=== PATIENT | female | born 1995 | race African-American/Black ===

== ENCOUNTER 2020-04-03 10:27 | Emergency (ER) | payer OTHER ==
[~2020-04-03] VITALS: Ht 160 cm; Wt 136.1 kg
[2020-04-03] MEDS ORDERED: FLAGYL500 M1 PO (10:39)
[2020-04-03 12:14] LABS: URINE BILIRUBIN NEGATIVE (Negative); URINE BLOOD TRACE (Negative); URINE CLARITY CLEAR; URINE COLOR YELLOW; URINE GLUCOSE-RANDOM* NEGATIVE (Negative); URINE KETONES NEGATIVE (Negative); URINE LEUKOCYTES-REFLEX NEGATIVE (Negative); URINE NITRITE-REFLEX NEGATIVE (Negative); URINE PROTEIN (DIPSTICK) NEGATIVE (Negative); URINE UROBILINOGEN 0.2 E.U./dl (0.2-1.0)
[2020-04-03 12:23] LABS: ABSOLUTE NEUTROPHILS 2.9 thou/uL (1.4-8.2); BASOPHILS 0.4 % (0.0-2.0); EOSINOPHILS 4.4 % (0.0-3.0); HEMATOCRIT 39.4 % (37.0-47.0); HEMOGLOBIN 13.7 gm/dL (12.0-15.0); LYMPHOCYTES 31.2 % (24.0-44.0); MCH 28.8 pg (26.0-34.0); MCHC 34.8 g/dL (28.0-37.0); MCV 82.9 fL (80.0-100.0); MONOCYTES 6.4 % (1.0-8.0); PLATELET COUNT 214 thou/uL (150-400); POLYS 57.6 % (36.0-66.0); RBC 4.75 mil/uL (4.20-5.00); RDW 13.9 % (10.5-14.5)
[2020-04-03 12:27] LABS: CALCIUM 9.4 mg/dL (8.5-10.1); POTASSIUM 4.1 mmol/L (3.5-5.1)
[2020-04-03 12:34] LABS: ALBUMIN 3.9 g/dL (3.4-5.0); TOTAL BILIRUBIN 0.5 mg/dL (0.2-1.0); TOTAL PROTEIN 8.4 g/dL (6.4-8.2)
[2020-04-03] MEDS ORDERED: ZOFRAN ODT4 MG DISSOLVE (14:26)
[2020-04-03 14:28] VITALS: BP 111/52
== END 2020-04-03 14:28 | disposition home or self-care (01) ==
LOC: ER 10:27
PROVIDERS: Physician Assistant
DX: R10.13 Epigastric pain (principal); R11.2 Nausea with vomiting, unspecified; F17.210 Nicotine dependence, cigarettes, uncomplicated; Z87.19 Personal history of other diseases of the digestive system; Z79.899 Other long term (current) drug therapy

== ENCOUNTER 2020-04-04 03:20 | Inpatient (IN) | payer OTHER ==
[~2020-04-04] VITALS: Ht 160 cm; Wt 137.4 kg
[~2020-04-04 03:20] MED LIST: FLAGYL500 M1 PO; ZOFRAN ODT4 MG DISSOLVE
[2020-04-04 03:24] VITALS: BP 131/85
[2020-04-04 04:42] LABS: ABSOLUTE NEUTROPHILS 3.4 thou/uL (1.4-8.2); BASOPHILS 0.4 % (0.0-2.0); EOSINOPHILS 2.9 % (0.0-3.0); HEMOGLOBIN 12.7 gm/dL (12.0-15.0); LYMPHOCYTES 32.4 % (24.0-44.0); MCH 27.9 pg (26.0-34.0); MCHC 33.3 g/dL (28.0-37.0); MCV 83.8 fL (80.0-100.0); MONOCYTES 7.1 % (1.0-8.0); PLATELET COUNT 200 thou/uL (150-400); POLYS 57.2 % (36.0-66.0); RBC 4.54 mil/uL (4.20-5.00); RDW 13.6 % (10.5-14.5)
[2020-04-04 05:03] LABS: CALCIUM 9.3 mg/dL (8.5-10.1); CREATININE 1.1 mg/dL (0.6-1.0); POTASSIUM 4.2 mmol/L (3.5-5.1)
[2020-04-04 05:45] LABS: CHOLESTEROL 149 mg/dL (<200); HDL CHOLESTEROL 49 mg/dL (>40); LDL CHOLESTEROL 80 mg/dL (<100); TRIGLYCERIDE 104 mg/dL (<150); VLDL 21 mg/dL (<40)
[2020-04-04 05:46] LABS: SERUM ASSESSMENT Clear
[2020-04-04 06:03] VITALS: BP 122/64
[2020-04-04 06:22] VITALS: BP 130/68
[2020-04-04 06:35] VITALS: BP 131/67
--- NOTE | 2020-04-04 07:59 | NUR ---
PT ARRIVEN ON THE FLOOR AROUND 0635, PT IS AWAKE, ALERT AND ORIENTEDX4, C/O ABDOMINAL PAIN, PRN PAIN MEDS GIVEN ORDERED, IV FLUIDS STARTED PER OCT, PT IS LAYING IN BED, PASSED ON RFEPORT TO DAY NURSE
[2020-04-04 10:34] LABS: ALBUMIN 3.8 g/dL (3.4-5.0); DIRECT BILIRUBIN < 0.1 mg/dL (<0.1-0.2); SGOT 25 U/L (15-37); SGPT 21 U/L (30-65); TOTAL BILIRUBIN 0.3 mg/dL (0.2-1.0); TOTAL PROTEIN 7.9 g/dL (6.4-8.2)
[2020-04-04 12:45] VITALS: BP 134/80
--- NOTE | 2020-04-04 14:51 | NUR ---
AAOX4. C/O LUQ ABD PAIN NOT RELIEVED BY PAIN MEDICATION. LIPASE 3,612 NOTED. SANA VARGAS, HERE. DR. CHANDLER PAGED. NEW PAIN CONTROL ORDERS RECEIVED. CT AND ULTRASOUND ABD. FALL PRECAUTIONS IN PLACE. WILL CONTINUE TO FOLLOW CLOSELY.
[2020-04-04 20:08] VITALS: BP 129/71
--- NOTE | 2020-04-04 23:51 | NUR ---
0320 REPORT CALLED TO TRINIDAD MOYA ON 4S. PATIENT TRANSFERED PER WHEELCHAIR. NAUSEA BETTER. PATIENT WANTS PAIN MEDICATION ONCE SHE IS IN HER NEW BED.
--- NOTE | 2020-04-05 04:26 | NUR ---
PATIENT TRANSFERRED TO UNIT FROM CCU SHORTLY BEFORE MIDNIGHT. DEMANDING DILAUDID IMMEDIATELY UPON ARRIVING. THIS NURSE INFORMS PATIENT THAT SHE HAS NOT BEEN TRANSFERRED IN THE COMPUTER SYSTEM YET, BUT SHE WILL RECEIVE REQUESTED PAIN MED SOON IT IS AVAILABLE. DILAUDID ADMINSITERED PER ORDERS. PATIENT RATES PAIN 10/10. 20 MINUTES LATER SHE IS SLEEPING. AWAKE AND IN THE BATHROOM AT 0200 REPORTING PAIN 10/10 AGAIN AND COMPLAINING THAT SHE ISN'T GETTING "ALL OF THE PAIN MEDS THEY GAVE ME IN [place]". PATIENT IS INFORMED THAT THERE IS STILL 4 HRS UNTIL DILAUDID CAN BE GIVEN AGAIN, AND THERE ARE NOT ORDERS FOR ANY OTHER PAIN MEDS. HOSPITALIST CONTACTED. ONE TIME ORDER FOR TORADOL RECEIVED AND MED ADMINSITERED. 30 MINUTES LATER PATIENT RATES PAIN 4/10.
[2020-04-05 06:50] LABS: ABSOLUTE NEUTROPHILS 2.8 thou/uL (1.4-8.2); BASOPHILS 0.3 % (0.0-2.0); EOSINOPHILS 1.8 % (0.0-3.0); HEMATOCRIT 34.2 % (37.0-47.0); HEMOGLOBIN 11.5 gm/dL (12.0-15.0); LYMPHOCYTES 34.4 % (24.0-44.0); MCH 28.3 pg (26.0-34.0); MCHC 33.6 g/dL (28.0-37.0); MCV 84.2 fL (80.0-100.0); MONOCYTES 6.5 % (1.0-8.0); PLATELET COUNT 180 thou/uL (150-400); RBC 4.07 mil/uL (4.20-5.00); RDW 13.7 % (10.5-14.5); WBC 4.9 thou/uL (4.0-11.0)
[2020-04-05 07:15] LABS: CALCIUM 9.1 mg/dL (8.5-10.1); CREATININE 0.8 mg/dL (0.6-1.0)
--- NOTE | 2020-04-05 08:07 | NUR ---
PATIENT RESTING IN BED STATES IS HUNGRY. GIVEN PRN PAIN MED IV PUSH. PT ALERT XS 4 IS PLEASANT AND COOPERATIVE WITH CARE. PT REMAINS NPO.
--- NOTE | 2020-04-05 13:42 | NUR ---
ASSESSMENT: CM REVIEWED CHART AND SPOKE WITH PATIENT. PT IS HERE DUE TO PANCREATITIS. PT REPORTS THAT SHE LIVES IN A HOUSE WITH HER SISTER. PT REPORTS BEING FULLY INDEPENDENT WITH ADLS AND AMBULATION. PT REPORTS SHE DOES NOT HAVE A PCP OR INSURANCE. CM PROVIDED PATIENT WITH [employer] RESOURCE PACKET. PT REPORTS SHE HAS NO HX OF HH OR SNF. CM DISCUSSED ROLE. PT IS CURRENTLY ON IV ANBX. CM WILL CONTINUE TO FOLLOW TO ASSIST NEEDED.
[2020-04-05 20:26] VITALS: BP 118/69
--- NOTE | 2020-04-05 20:40 | NUR ---
1900 ASSUMED CARE OF PT AFTER BEDSIDE REPORT. 1930 BASELINE ASSESSMENT COMPLETED, PT RESTING IN BED STATES NAUSEA IS BETTER, IV SITE CHECKED AND FLUIDS INFUSING PER MAR WITHOUT DIFFICULTY. NO COMPLAINTS OR QUESTIONS AT THIS TIME, SCDS IN PLACE, FALL PRECAUTIONS IN PLACE, PT REFUSING LOVENOX INJECTION BUT ACCEPTED SCDS, PT ENCOURAGED TO COUGH AND DEEP BREATH, PT REQUESTING NEW IV SITE NOT IN AC, WILL ASSESS ANOTHER SITE.
[2020-04-06 04:23] VITALS: BP 118/72
[2020-04-06 07:25] VITALS: BP 138/67
[2020-04-06] MEDS ORDERED: ZOFRAN4 MG PO (09:46)
[2020-04-06] MEDS ORDERED: IBU600 MG PO (09:46)
--- NOTE | 2020-04-06 10:39 | NUR ---
PT CARE ASSUMED AT 0700.A&Ox4. PAIN CONTROLLED WELL WITH MEDICATION ON BOARD. PT UP IN THE ROOM INDEPENDENTLY. RECORDS REQUESTED FROM [place] NOT RECEIVED YET. IV PATENT WITH NO REDNESS OR EDEMA. PT TOLERATING ADVANCED DIET WELL. ABDOMEN SOFT NON TENDER. STILL TRYING TO COLLECT STOOL SAMPLE. PT SHOWERED. PT INDEPENDENTLY IN THE ROOM. CALL LIGHT IN REACH. WILL CONTINUE TO MONITOR.
--- NOTE | 2020-04-06 11:14 | NUR ---
ON-GOING ASSESSMENT: CM REVIEWED CHART AND SPOKE WITH ATTENDING. PT HAS ORDERS TO DISCHARGE HOME TODAY WITH NO NEEDS. PT WAS GIVEN HEALTH RESOURCE PACKET DUE TO NOT HAVING INSURANCE. PT HAS NO NEEDS FROM CM.
[2020-04-06 12:08] VITALS: BP 138/67
== END 2020-04-06 13:30 | disposition home or self-care (01) | DRG 439 ==
LOC: ER 03:20 → 2N 05:28 → EROBS 05:28 → 2N 06:24 → 4S 23:35
PROVIDERS: Emergency Medicine; Nurse Practitioner; Nurse Practitioner Family; ADMIT Hospitalist; ATTEND Hospitalist
DX: K85.90 Acute pancreatitis without necrosis or infection, unspecified (principal); Z68.43 Body mass index [BMI] 50.0-59.9, adult; F17.210 Nicotine dependence, cigarettes, uncomplicated; E66.9 Obesity, unspecified; Z83.79 Family history of other diseases of the digestive system; Z79.899 Other long term (current) drug therapy
CPT/HCPCS: 10195